=== PATIENT | female | born 1995 | race Caucasian/White ===

== ENCOUNTER 2016-10-25 15:16 | Emergency (ER) | payer SELFPAY ==
[~2016-10-25] VITALS: Ht 160 cm; Wt 63.5 kg
[2016-10-25] MEDS ORDERED: AMOXICILLIN (15:30)
== END 2016-10-25 17:14 | disposition home or self-care (01) ==
LOC: SED 15:16
DX: L03.012 Cellulitis of left finger (principal); Z88.1 Allergy status to other antibiotic agents; Z91.030 Bee allergy status; Z91.013 Allergy to seafood
CPT/HCPCS: 10060; 99283